=== PATIENT | female | born 1970 | race Caucasian/White ===

== ENCOUNTER → 2017-04-18 | Outpatient (CLI) | payer OTHER ==
[~2017-04-18] MED LIST: ALPR.5T PO; ALPRAZOLAM 0.5 MG; BUDE6HFA IH; HYDR-3456 PO; HYDR1TAB8 OP; NITR-65 PO; NITR100C3 PO; ONDA-42 SL; OXYC-12 PO; OXYC-272 PO; SUMA1TAB PO
--- NOTE | 2017-04-21 14:31 | Diagnostic Imaging Report ---
EXAMINATION: Bilateral screening mammogram 2D views with tomosynthesis. The current study was also evaluated with a Computer Aided Detection (CAD) system. INDICATION: Screening. PERSONAL HISTORY: No current complaints stated on the questionnaire. COMPARISON: 11/09/2013. FINDINGS: The breasts are composed of heterogeneously dense parenchyma which may decrease mammographic sensitivity. Punctate benign-appearing calcifications are seen. Retropectoral symmetric implants are again noted without change. Allowing for technique and positional differences, no suspicious change is seen. IMPRESSION: No significant change. ACR BI-RADS Category 2: Benign findings. Result letter will be mailed to the patient. Note: At least 10% of breast cancer is not imaged by mammography. Dictated by: Dictated on workstation # [id number]
== END ==
LOC: RAD 12:23
PROVIDERS: ATTEND Nurse Practitioner
DX: Z12.31 Encounter for screening mammogram for malignant neoplasm of breast (principal); N93.8 Other specified abnormal uterine and vaginal bleeding
CPT/HCPCS: 77067

== ENCOUNTER → 2019-05-05 | Outpatient (CLI) | payer OTHER ==
--- NOTE | 2019-05-05 16:49 | Diagnostic Imaging Report ---
INDICATION: Right lower quadrant pain. History of ureteral stones. COMPARISON: 08/20/2013. FINDINGS: No mineralizations overlying the renal fossa to suggest renal calculi. There are few scattered calcified pelvic phleboliths that are unchanged. Nonobstructive bowel gas pattern. Small physiologic volume of colonic stool is present. Normal regional skeleton. IMPRESSION: 1. No radiographic evidence of urinary tract calculi. Dictated by: Dictated on workstation # [id number]
== END ==
LOC: RAD 11:40
PROVIDERS: ATTEND Family Medicine
DX: R10.31 Right lower quadrant pain (principal); Z87.442 Personal history of urinary calculi
CPT/HCPCS: 74018

== ENCOUNTER 2021-06-12 14:36 | Emergency (ER) | payer OTHER ==
[~2021-06-12] VITALS: Ht 180 cm; Wt 86.0 kg
[2021-06-12] MEDS ORDERED: LIDOCAINE/EPI 1%-1:100,000 (XYLOCAINE) 10 ML INJ ONE (15:45)
--- NOTE | 2021-06-12 15:47 | ED GI ---
General Chief Complaint: Rect Problems Stated Complaint: HEMORRHOIDS Nursing Triage Note: PT AMB TO ER WITH C/O PAINFUL HEMORRHOIDS FOR ABOUT 2 WEEKS. PT SAID ABOUT 6 YRS AGO SHE HAD ONE LACERATED HERE Source of Information: Patient Exam Limitations: No Limitations History of Present Illness Date Seen by Provider: Jun 12, 2021 Time Seen by Provider: 15:42 Initial Comments To ER by private vehicle with reports of painful hemorrhoid for about 2 weeks. She has had hemorrhoids previously and been seen here in the emergency room with incision and drainage twice and has had good results with more rapid healing. Is not on any anticoagulants. She would like to have this done if possible. Timing/Duration: 1-2 Days Severity/Quality: Moderate Radiation: No Radiation Activities at Onset: None Allergies and Home Medications Allergies Coded Allergies: No Known Drug Allergies (Unverified , 05/04/12) Patient Home Medication List Home Medication List Reviewed: Yes Alprazolam (Xanax) 0.5 Mg Tablet, 1 MG PO HS, (Reported) Entered as Reported by: ESTEFANI REEVES on 05/04/12 1259 Hydrocodone Bit/Ibuprofen (Vicoprofen 200-7.5 Mg Tab) 1 Each Tablet, 1-2 EACH OP Q4-6HR PRN for PAIN Prescribed by: GENE ROWE on 08/06/13 1024 Hydrocodone/Acetaminophen (Vicodin Es 7.5-300 mg Tablet) 1 Each Tablet, 1-2 TAB PO Q4-6HR PRN for PAIN Prescribed by: MICHELLE CHAPMAN MD on 11/09/13 1529 Nitrofurantoin Macrocrystal (Macrobid 100 Mg) 100 Mg Capsule, 1 CAP PO BID Prescribed by: KOLE COOK on 08/18/13 1058 Nitrofurantoin/Nitrofuran Mac (Macrobid) 100 Mg Capsule, 1 EACH PO BID Prescribed by: GENE ROWE on 08/06/13 1024 Ondansetron Hcl (Zofran Oral Dissolve) 4 Mg Tab, 4 MG SL Q4H Prescribed by: GENE ROWE on 08/06/13 1024 Oxycodone Hcl/Acetaminophen (Percocet 10-325 Mg Tablet) 1 Tab Tablet, 1 TAB PO Q4H PRN for PAIN Prescribed by: KOLE COOK on 08/18/13 1058 Sumatriptan Succ/Naproxen Sod (Treximet 85-500 Mg Tablet) 1 Each Tablet, 1 EACH PO NEEDED, (Reported) Entered as Reported by: ESTEFANI REEVES on 05/04/12 1259 [Xanax .5mg Hs Prn] , Unknown Dose, (Reported) Entered as Reported by: KOLE COOK on 08/18/13 1058 Review of Systems Review of Systems Constitutional: see HPI EENTM: No Symptoms Reported Respiratory: No Symptoms Reported Cardiovascular: No Symptoms Reported Gastrointestinal: See HPI, Other (Rectal pain) Genitourinary: No Symptoms Reported Musculoskeletal: no symptoms reported Skin: no symptoms reported Psychiatric/Neurological: No Symptoms Reported Endocrine: No Symptoms Reported Hematologic/Lymphatic: No Symptoms Reported Past Hourifv-Wzksev-Orvolq Hx Patient Social History Tobacco Use?: No Substance use?: No Alcohol Use?: Yes Alcohol type: Beer Alcohol Frequency: Rarely Pt feels they are or have been: No Immunizations Up To Date Influenza Vaccine Up-to-Date: No; Not Current First/Initial COVID19 Vaccinat: September COVID19 Vaccination Jomar: OCTOBER COVID19 Vaccine Senior C 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 oz. 83.535127ss; 26.00 BMI Method:Stated General Appearance: WD/WN, no apparent distress, other (Alert and oriented very pleasant no distress) Respiratory: no respiratory distress, no accessory muscle use Gastrointestinal: normal bowel sounds, non tender, soft Genital/Rectal: other (Rectal exam done with Maryjo BAILEY at the bedside. There is an acutely thrombosed right sided external hemorrhoid about dime sized. This was anesthetized topically with let then additionally with 2 mL of 1% lidocaine with epinephrine using a 27-gauge needle. Then made a 1 cm incision with an 11 blade scalpel. A large amount of clot was then extracted with tweezers.) Extremities: normal range of motion, non-tender Neurologic/Psychiatric: alert, normal mood/affect Skin: normal color, warm/dry Progress/Results/Core Measures Results/Orders My Orders Orders - MYRA MOROCHO APRN Lidocaine/Epi 1% 1:100,000 (Xylocaine 1% (06/12/21 15:45) Let Solution (Let Solution) (06/12/21 16:00) Lidocaine/Epi 1% 1:100,000 (Xylocaine /E (06/12/21 16:15) Lidocaine/Epi 1% 1:100,000 (Xylocaine /E (06/12/21 16:15) Medications Given in ED Current Medications Medications Dose Ordered Sig/Staci Route Start Time Stop Time Status Last Admin Dose Admin Lidocaine/ Epinephrine 10 ml ONCE ONCE INJ 06/12/21 16:15 06/12/21 16:16 DC 06/12/21 16:19 10 ML Tetracaine/ Epinephrine/ Lidocaine 3 ml ONCE ONCE TOP 06/12/21 16:00 06/12/21 16:01 DC 06/12/21 16:01 3 ML Vital Signs/I&O 06/12/21 15:13 Temp 36.9 Pulse 75 Resp 18 B/P (MAP) 146/91 (109) Pulse Ox 98 O2 Delivery Room Air Blood Pressure Mean: 109 Departure Communication (Admissions) I discussed with her that incision and drainage is most helpful within 72 hours of symptom onset and we're quite a bit beyond that. Given her intolerable symptoms and history with rapid improvement we will go ahead and do an incision and drainage of this acutely thrombosed external hemorrhoid. I also discussed with her the risk of bleeding, infection. She has had these before and has had success without difficulty. Would like to proceed with incision and drainage. Impression Primary Impression: Thrombosed external hemorrhoid Disposition: HOME, SELF-CARE Condition: Stable Departure-Patient Inst. Decision time for Depature: 16:37 Referrals: BEHT OLIVA MD (PCP/Family) Primary Care Physician Patient Instructions: Hemorrhoids Add. Discharge Instructions: 1. Return to ER for any concerns. Warm bathtub soaks after a bowel movement for the next few days instead of wiping. You may also shower instead. Might be a good idea to apply some topical lidocaine on a gauze pad before having a bowel movement. Also, keep your stool soft by increasing water intake, stool softener like Colace twice a day. All discharge instructions reviewed with patient and/or family. Voiced understanding. Scripts Hydrocodone/Acetaminophen (Hydrocodone-Acetamin 5-325 mg) 1 Each Tablet 1 TAB PO Q4H PRN for PAIN-MODERATE (5-7), #14 TAB Prov: MYRA MOROCHO APRN 06/12/21 Lidocaine HCl (Lidocaine) 35 Gm Oint 35 GM TP TID PRN for PAIN-MILD (1-4), #1 EA Prov: MYRA MOROCHO APRN 06/12/21 Sulfamethoxazole/Trimethoprim (Bactrim Ds Tablet) 1 Each Tablet 1 EACH PO BID, #10 TAB Prov: MYRA MOROCHO APRN 06/12/21 MYRA MOROCHO APRN Jun 12, 2021 15:47
[2021-06-12] MEDS ORDERED: L.E.T. SOLUTION 3 ML SYR TOP ONE (16:00)
[2021-06-12] MEDS ORDERED: LIDOCAINE/EPI 1%-1:100,000 (XYLOCAINE) 20ML INJ ONE ×2 (16:15)
[2021-06-12] MEDS ORDERED: LD5O35 TP (16:40)
[2021-06-12] MEDS ORDERED: ACHD5005 PO (16:40)
[2021-06-12] MEDS ORDERED: SULF1TAB38 PO (16:40)
[2021-06-12 16:55] VITALS: BP 131/91
== END 2021-06-12 16:55 | disposition home or self-care (01) ==
LOC: EDUNIT# 14:36 → ER 14:38
DX: K64.5 Perianal venous thrombosis (principal); J45.909 Unspecified asthma, uncomplicated; F41.9 Anxiety disorder, unspecified; Z79.899 Other long term (current) drug therapy
CPT/HCPCS: 99281

== ENCOUNTER → 2021-10-24 | Outpatient (CLI) | payer OTHER ==
[~2021-10-24] MED LIST changes: +ACHD5005 PO; +BARIUM for suspension 96% w/w (Vanilla Silq Medium Density) PO ONE; +LD5O35 TP; +SULF1TAB38 PO
--- NOTE | 2021-10-24 11:23 | Diagnostic Imaging Report ---
INDICATION: Food getting stuck in the epigastric region. TECHNIQUE: The patient ingested effervescent crystals as well as thin and thick barium and imaging over the esophagus, stomach, and proximal small bowel was performed. A total of 0.8 minutes of fluoroscopic time was utilized. FINDINGS: The preliminary radiograph of the abdomen is unremarkable apart from a tiny calcific density overlying the lower pole of the left kidney, perhaps a small renal calculus. The esophagus has a smooth contour. No mass or stricture is seen. There is a small esophageal ring distally which produces slight luminal narrowing. No gastroesophageal reflux was demonstrated. There is a very small hiatal hernia present. The stomach has a normal configuration. The duodenal bulb is without deformity. The visualized proximal small bowel loops are of normal caliber. IMPRESSION: Small sliding-type hiatal hernia and distal esophageal ring without significant luminal narrowing. The study is otherwise unremarkable. Dictated by: Dictated on workstation # [id number]
== END ==
LOC: RAD 08:52
PROVIDERS: ATTEND Family Medicine
DX: K44.9 Diaphragmatic hernia without obstruction or gangrene (principal)
CPT/HCPCS: 74246

== ENCOUNTER 2021-12-26 12:26 | Emergency (ER) | payer OTHER ==
[~2021-12-26] VITALS: Ht 180.3 cm; Wt 86.0 kg
[~2021-12-26 12:26] MED LIST changes: -BARIUM for suspension 96% w/w (Vanilla Silq Medium Density) PO ONE
[2021-12-26] MEDS ORDERED: NS IV 1000 ML 1,000 ML IV STA (12:41)
[2021-12-26] MEDS ORDERED: HYDROmorphone 2 MG/ML VIAL (DILAUDID) IV ONE (12:45)
[2021-12-26] MEDS ORDERED: ONDANSETRON 4 MG/2 ML (SDV) Z0FRAN IVP ONE (12:45)
--- NOTE | 2021-12-26 12:47 | ED Abdominal Pain ---
General Chief Complaint: Abdominal/GI Problems Stated Complaint: BACK PAIN Source of Information: Patient Exam Limitations: No Limitations (KAMILLA GARCIA) History of Present Illness Date Seen by Provider: Dec 26, 2021 Time Seen by Provider: 12:44 Initial Comments This is a 51-year-old female who presents to the emergency room for evaluation of sudden onset of left flank pain. She states that approximately 1 hour ago she started having some significant left flank pain that radiates into her left groin. She does have a history of kidney stones 7 to 8 years ago and states that this feels similar. She did not attempt any therapy prior to arrival and nothing seems to make her symptoms better or worse. She currently rates her pain as a sharp 10 out of 10. She denies hematuria, loss of bowel or bladder control, weakness, fever, chills. Timing/Duration: 1 Hour Severity/Quality: Severe Location: Flank Radiation: Groin Activities at Onset: None (KAMILLA GARCIA) Allergies and Home Medications Allergies Coded Allergies: No Known Drug Allergies (Unverified , 05/04/12) Patient Home Medication List Home Medication List Reviewed: Yes (KAMILLA GARCIA) Alprazolam (Xanax) 0.5 Mg Tablet, 1 MG PO HS, (Reported) Entered as Reported by: ESTEFANI REEVES on 05/04/12 1259 Hydrocodone Bit/Ibuprofen (Vicoprofen 200-7.5 Mg Tab) 1 Each Tablet, 1-2 EACH OP Q4-6HR PRN for PAIN Prescribed by: GENE ROWE on 08/06/13 1024 Hydrocodone/Acetaminophen (Vicodin Es 7.5-300 mg Tablet) 1 Each Tablet, 1-2 TAB PO Q4-6HR PRN for PAIN Prescribed by: MICHELLE CHAPMAN MD on 11/09/13 1529 Hydrocodone/Acetaminophen (Hydrocodone-Acetamin 5-325 mg) 1 Each Tablet, 1 TAB PO Q4H PRN for PAIN-MODERATE (5-7) Prescribed by: MYRA MOROCHO on 06/12/21 1640 Hydrocodone/Acetaminophen (Hydrocodone-Acetamin 5-325 mg) 5 Mg-325 Mg Tablet, 1 TAB PO Q4H PRN for PAIN-MODERATE (5-7) Prescribed by: MALIKA HAND on 12/26/21 1412 Lidocaine HCl (Lidocaine) 35 Gm Oint, 35 GM TP TID PRN for PAIN-MILD (1-4) Prescribed by: MYRA MOROCHO on 06/12/21 1640 Nitrofurantoin Macrocrystal (Macrobid 100 Mg) 100 Mg Capsule, 1 CAP PO BID Prescribed by: KOLE COOK on 08/18/13 1058 Nitrofurantoin/Nitrofuran Mac (Macrobid) 100 Mg Capsule, 1 EACH PO BID Prescribed by: GENE ROWE on 08/06/13 1024 Ondansetron (Ondansetron Odt) 4 Mg Tab.rapdis, 4 MG PO Q4H PRN for NAUSEA-1ST LINE Prescribed by: MALIKA HAND on 12/26/21 1411 Ondansetron Hcl (Zofran Oral Dissolve) 4 Mg Tab, 4 MG SL Q4H Prescribed by: GENE ROWE on 08/06/13 1024 Oxycodone Hcl/Acetaminophen (Percocet 10-325 Mg Tablet) 1 Tab Tablet, 1 TAB PO Q4H PRN for PAIN Prescribed by: KOLE COOK on 08/18/13 1058 Sulfamethoxazole/Trimethoprim (Bactrim Ds Tablet) 1 Each Tablet, 1 EACH PO BID Prescribed by: MYRA MOROCHO on 06/12/21 1640 Sumatriptan Succ/Naproxen Sod (Treximet 85-500 Mg Tablet) 1 Each Tablet, 1 EACH PO NEEDED, (Reported) Entered as Reported by: ESTEFANI REEVES on 05/04/12 1259 Tamsulosin HCl (Flomax) 0.4 Mg Cap, 0.4 MG PO DAILY Prescribed by: MALIKA HAND on 12/26/21 1411 [Xanax .5mg Hs Prn] , Unknown Dose, (Reported) Entered as Reported by: KOLE COOK on 08/18/13 1058 Discontinued Medications Hydrocodone/Acetaminophen (Hydrocodone-Acetamin 5-325 mg) 5 Mg-325 Mg Tablet, 1 TAB PO Q4H PRN for PAIN-MODERATE (5-7) Prescribed by: MALIKA HAND on 12/26/21 1406 Ondansetron (Ondansetron Odt) 4 Mg Tab.rapdis, 4 MG PO Q4H PRN for NAUSEA-1ST LINE Prescribed by: MALIKA HAND on 12/26/21 140 Tamsulosin HCl (Flomax) 0.4 Mg Cap, 0.4 MG PO DAILY Prescribed by: MALIKA HAND on 12/26/21 140 Review of Systems Review of Systems Constitutional: no symptoms reported EENTM: No Symptoms Reported Respiratory: No Symptoms Reported Cardiovascular: No Symptoms Reported Gastrointestinal: Nausea Genitourinary: Flank Pain Musculoskeletal: no symptoms reported Skin: no symptoms reported Hematologic/Lymphatic: No Symptoms Reported (KAMILLA GARCIA) Past Kfsylfy-Rxgyci-Lhvaau Hx Patient Social History Tobacco Use?: No (KAMILLA GARCIA) Immunizations Up To Date First/Initial COVID19 Vaccinat: September COVID19 Vaccination Jomar: OCTOBER (KAMILLA GARCIA) Past Medical History Asthma Reproductive Disorders: No Female Reproductive Disorders: Denies Sleep Difficulties, Anxiety (KAMILLA GARCIA) Physical Exam Vital Signs Vital Signs - First Documented 12/26/21 12:40 Temp 35.6 Pulse 75 Resp 18 B/P (MAP) 152/98 (116) Pulse Ox 100 O2 Delivery Room Air (DAVID NELSON MD) Vital Signs Capillary Refill : (KAMILLA GARCIA) Height/Weight/BMI Height: 5'11" Weight: 185lbs. oz. 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, oriented x 3 Skin: normal color (KAMILLA GARCIA) Progress/Results/Core Measures Results/Orders Lab Results Laboratory Tests Test 12/26/21 12:40 12/26/21 12:46 Range/Units White Blood Count 5.3 4.3-11.0 10^3/uL Red Blood Count 4.26 3.80-5.11 10^6/uL Hemoglobin 10.2 L 11.5-16.0 g/dL Hematocrit 34 L 35-52 % Mean Corpuscular Volume 79 L 80-99 fL Mean Corpuscular Hemoglobin 24 L 25-34 pg Mean Corpuscular Hemoglobin Concent 30 L 32-36 g/dL Red Cell Distribution Width 15.9 H 10.0-14.5 % Platelet Count 258 130-400 10^3/uL Mean Platelet Volume 10.5 9.0-12.2 fL Immature Granulocyte % (Auto) 0 % Neutrophils (%) (Auto) 56 42-75 % Lymphocytes (%) (Auto) 27 12-44 % Monocytes (%) (Auto) 10 0-12 % Eosinophils (%) (Auto) 6 0-10 % Basophils (%) (Auto) 0 0-10 % Neutrophils # (Auto) 3.0 1.8-7.8 10^3/uL Lymphocytes # (Auto) 1.4 1.0-4.0 10^3/uL Monocytes # (Auto) 0.5 0.0-1.0 10^3/uL Eosinophils # (Auto) 0.3 0.0-0.3 10^3/uL Basophils # (Auto) 0.0 0.0-0.1 10^3/uL Immature Granulocyte # (Auto) 0.0 0.0-0.1 10^3/uL Sodium Level 138 135-145 MMOL/L Potassium Level 3.6 3.6-5.0 MMOL/L Chloride Level 105 98-107 MMOL/L Carbon Dioxide Level 21 21-32 MMOL/L Anion Gap 12 5-14 MMOL/L Blood Urea Nitrogen 16 7-18 MG/DL Creatinine 0.82 0.60-1.30 MG/DL Estimat Glomerular Filtration Rate 87 BUN/Creatinine Ratio 20 Glucose Level 103 70-105 MG/DL Calcium Level 8.8 8.5-10.1 MG/DL Urine Color YELLOW Urine Clarity CLEAR Urine pH 6.0 5-9 Urine Specific Kathleen 1.020 1.016-1.022 Urine Protein TRACE H NEGATIVE Urine Glucose (UA) NEGATIVE NEGATIVE Urine Ketones NEGATIVE NEGATIVE Urine Nitrite NEGATIVE NEGATIVE Urine Bilirubin NEGATIVE NEGATIVE Urine Urobilinogen 0.2 < = 1.0 MG/DL Urine Leukocyte Esterase NEGATIVE NEGATIVE Urine RBC (Auto) 2+ H NEGATIVE Urine RBC 10-25 H /HPF Urine WBC NONE /HPF Urine Squamous Epithelial Cells 5-10 /HPF Urine Crystals PRESENT H /LPF Urine Amorphous Sediment FEW NIVIA URATES H /LPF Urine Bacteria NEGATIVE /HPF Urine Casts NONE /LPF Urine Mucus MODERATE H /LPF Urine Culture Indicated NO (DAVID NELSON MD) Vital Signs/I&O 12/26/21 12/26/21 12:40 14:14 Temp 35.6 Pulse 75 70 Resp 18 16 B/P (MAP) 152/98 (116) 106/74 Pulse Ox 100 100 O2 Delivery Room Air (DAVID NELSON MD) Departure Communication (PCP) CT abdomen and pelvis shows obstructing calculus in the left UVJ measuring 0.4 cm with mild left-sided hydroureteronephrosis. Additional nonobstructing calculus in the superior pole of the right kidney measuring 0.2 cm. Patient was given IV pain medication and a liter of fluid. Lab work was otherwise unremarkable. Patient is pain-free. Discussed outpatient follow-up with urology. Will discharge with Flomax, pain medication and Zofran for nausea. If any worsening symptoms return back to ED for further evaluation. (KAMILLA GARCIA) Impression Primary Impression: Ureterolithiasis Additional Impression: Nephrolithiasis Disposition: 01 HOME, SELF-CARE Condition: Stable Departure-Patient Inst. Decision time for Depature: 14:01 (KAMILLA GARCIA) Referrals: BETH OLIVA MD (PCP/Family) Primary Care Physician DIMA COMBS MD Patient Instructions: Kidney Stone, Adult ED Add. Discharge Instructions: Recommend outpatient follow-up with urology. Recommend pain medication as needed. Oral hydration. If any worsening symptoms return back to ED for further evaluation All discharge instructions reviewed with patient and/or family. Voiced understanding. Scripts Hydrocodone/Acetaminophen (Hydrocodone-Acetamin 5-325 mg) 5 Mg-325 Mg Tablet 1 TAB PO Q4H PRN for PAIN-MODERATE (5-7), #8 TAB Prov: KAMILLA GARCIA 12/26/21 Ondansetron (Ondansetron Odt) 4 Mg Tab.rapdis 4 MG PO Q4H PRN for NAUSEA-1ST LINE, #8 TAB Prov: KAMILLA GARCIA 12/26/21 Tamsulosin HCl (Flomax) 0.4 Mg Cap 0.4 MG PO DAILY, #20 CAP Prov: KAMILLA GARCIA 12/26/21 ATTENDING PHYSICIAN NOTE: I was physically present as attending physician in the emergency department during the care of this patient, but I was not directly involved in the decision making or delivery of care for this patient. (DAVID NELSON MD) KAMILLA GARCIA Dec 26, 2021 12:47 DAVID NELSON MD Dec 27, 2021 21:25
[2021-12-26 12:56] LABS: BASOPHILS % (AUTO) 0 % (0-10); EOSINOPHILS # (AUTO) 0.3 10^3/uL (0.0-0.3); EOSINOPHILS % (AUTO) 6 % (0-10); HEMATOCRIT 34 % (35-52); HEMOGLOBIN 10.2 g/dL (11.5-16.0); LYMPHOCYTES # (AUTO) 1.4 10^3/uL (1.0-4.0); LYMPHOCYTES % (AUTO) 27 % (12-44); MEAN CORPUSCULAR HEMOGLOBIN 24 pg (25-34); MEAN CORPUSCULAR HGB CONC 30 g/dL (32-36); MEAN CORPUSCULAR VOLUME 79 fL (80-99); MEAN PLATELET VOLUME 10.5 fL (9.0-12.2); MONOCYTES # (AUTO) 0.5 10^3/uL (0.0-1.0); MONOCYTES % (AUTO) 10 % (0-12); NEUTROPHILS % (AUTO) 56 % (42-75); PLATELET COUNT 258 10^3/uL (130-400); WHITE BLOOD COUNT 5.3 10^3/uL (4.3-11.0)
[2021-12-26 13:02] LABS: BILIRUBIN,URINE NEGATIVE (NEGATIVE); CLARITY,URINE CLEAR; COLOR,URINE YELLOW; GLUCOSE, URINE (UA) NEGATIVE (NEGATIVE); KETONES,URINE NEGATIVE (NEGATIVE); LEUKOCYTE ESTERASE ,URINE NEGATIVE (NEGATIVE); NITRITE,URINE NEGATIVE (NEGATIVE); PROTEIN,URINE TRACE (NEGATIVE)
[2021-12-26 13:14] LABS: POTASSIUM 3.6 MMOL/L (3.6-5.0)
[2021-12-26 13:15] LABS: AMORPHOUS SEDIMENT,UR FEW AMOR URATES /LPF; BACTERIA,URINE NEGATIVE /HPF
[2021-12-26 13:15] LABS: CALCIUM 8.8 MG/DL (8.5-10.1)
[2021-12-26 13:19] LABS: CREATININE SERUM 0.82 MG/DL (0.60-1.30)
--- NOTE | 2021-12-26 13:43 | Diagnostic Imaging Report ---
PROCEDURE: CT abdomen and pelvis without contrast. TECHNIQUE: Multiple contiguous axial images were obtained through the abdomen and pelvis without the use of intravenous contrast. Auto Exposure Controls were utilized during the CT exam to meet ALARA standards for radiation dose reduction. INDICATION: Left-sided flank pain. COMPARISON: 08/06/2013. FINDINGS: The heart is unremarkable. Nodule is seen in the right middle lobe measuring 0.4 cm, stable since 2013. A calculus is seen in the left UVJ measuring 0.4 cm with mild left-sided hydroureteronephrosis. A nonobstructing calculus is seen in the superior pole of the right kidney measuring 0.2 cm. No evidence of solid renal mass. The liver, spleen, pancreas, and adrenal glands have a normal appearance. There is no pathologically enlarged mesenteric or retroperitoneal adenopathy. The bowel loops are nondilated. The appendix is visualized in the right lower quadrant and has a normal appearance. There is no free fluid or free air. No acute osseous abnormalities. There is no free air, loculated collection, or adenopathy in the pelvis. IMPRESSION: 1. Obstructing calculus in the left UVJ measuring 0.4 cm with mild left-sided hydroureteronephrosis. 2. Additional nonobstructing calculus in the superior pole of the right kidney measuring 0.2 cm. Dictated by: Dictated on workstation # [id number]
[2021-12-26] MEDS ORDERED: ONDA4TAB11 PO ×2 (14:02→14:11)
[2021-12-26] MEDS ORDERED: ACHD5005 PO ×3 (14:02→14:11)
[2021-12-26] MEDS ORDERED: TMSL.4C PO ×2 (14:02→14:11)
[2021-12-26 14:14] VITALS: BP 106/74
== END 2021-12-26 14:23 | disposition home or self-care (01) ==
LOC: EDUNIT# 12:26 → ER 12:27
DX: N13.2 Hydronephrosis with renal and ureteral calculous obstruction (principal); Z87.442 Personal history of urinary calculi
CPT/HCPCS: 36415; 74176; 80048; 81000; 85025

== ENCOUNTER → 2022-01-16 | Outpatient (CLI) | payer OTHER ==
[~2022-01-16] MED LIST changes: +ALPR0.5T PO; +CARB200T6 PO; +NAPR-1071 PO; +ONDA4TAB11 PO; +SUMA1TAB12 PO; +TMSL.4C PO
--- NOTE | 2022-01-16 16:34 | Diagnostic Imaging Report ---
INDICATION: Left UVJ stone. Time of Exam: 3:40 PM Correlation is made with CT exam from 12/26/2021. The previously noted left UVJ calculus is not appreciated by plain film. There are several pelvic calcifications present which are likely phleboliths. No definite calculi along the course of the ureters are identified. Bowel gas pattern is unremarkable. IMPRESSION: Previously noted left UVJ calculus is no longer appreciated. Dictated by: Dictated on workstation # [id number]
== END ==
LOC: RAD 15:24
PROVIDERS: ATTEND Urology
DX: N20.2 Calculus of kidney with calculus of ureter (principal)
CPT/HCPCS: 74018

== ENCOUNTER 2022-01-18 05:33 | Outpatient (CLI) | payer OTHER ==
[~2022-01-18] VITALS: Ht 180.3 cm; Wt 86.0 kg
[~2022-01-18 05:33] MED LIST changes: -ALPR0.5T PO; -CARB200T6 PO; -NAPR-1071 PO; -SUMA1TAB12 PO
[2022-01-18] MEDS ORDERED: ALPR0.5T PO (10:35)
[2022-01-18] MEDS ORDERED: CARB200T6 PO (10:35)
[2022-01-18] MEDS ORDERED: SUMA1TAB12 PO (10:35)
[2022-01-18] MEDS ORDERED: NAPR-1071 PO (10:35)
== END 2022-01-18 10:51 | disposition home or self-care (01) ==
LOC: PREOP 05:33
PROVIDERS: ATTEND Urology
DX: Z01.818 Encounter for other preprocedural examination (principal)

== ENCOUNTER 2022-01-22 06:41 | Day surgery (SDC) | payer OTHER ==
[~2022-01-22] VITALS: Ht 180 cm; Wt 86.0 kg
[2022-01-22] VITALS (8 sets, daily range): BP systolic 92–130; BP diastolic 53–86
[~2022-01-22 06:41] MED LIST changes: +ALPR0.5T PO; +CARB200T6 PO; +NAPR-1071 PO; +SUMA1TAB12 PO
[2022-01-22] MEDS ORDERED: MIDAZOLAM 2 MG/2 ML (VERSED) VIAL ONE (06:57)
[2022-01-22] MEDS ORDERED: proPOfol 200 MG/20 ML (DIPRIVAN) VIAL IV ONE (06:57)
[2022-01-22] MEDS ORDERED: LIDOCAINE PF 2% 5 ML (XYLOCAINE) VIAL ONE (06:57)
[2022-01-22] MEDS ORDERED: ONDANSETRON 4 MG/2 ML (SDV) Z0FRAN ONE (06:57)
[2022-01-22] MEDS ORDERED: fentaNYL INJ 100 MCG/2 ML AMP ONE (06:57)
--- NOTE | 2022-01-22 07:04 | Progress Note-Pre Operative ---
Pre-Operative Progress Note H&P Reviewed The H&P was reviewed, patient examined and no changes noted. Date Seen by Provider: Jan 22, 2022 Time Seen by Provider: 07:04 Date H&P Reviewed: Jan 22, 2022 Time H&P Reviewed: 07:04 Pre-Operative Diagnosis: LT DISTAL URETERAL STONE DIMA COMBS MD Jan 22, 2022 07:04
[2022-01-22] MEDS ORDERED: cefTRIAXone 1 GM PRE-MIX 50 ML IV ONE ×2 (07:05→07:15)
[2022-01-22] MEDS: LACTATED RINGERS 1,000 ML IV PRN ×2 (07:10→07:11)
--- NOTE | 2022-01-22 07:18 | Progress Note-Post Operative ---
Post-Operative Progess Note Surgeon (s)/Tellers Supervisor (s) Surgeon DIMA COMBS MD Tellers Supervisor: NONE Pre-Operative Diagnosis LT DISTAL URETERAL STONE Post-Operative Diagnosis SAME (PASSED) Procedure & Operative Findings Date of Procedure 01/22/22 Procedure Performed/Findings LT URETEROSCOPY Anesthesia Type GENERAL Estimated Blood Loss Estimated blood loss (mL): NONE Specimens/Packing Specimens Removed NONE Packing: NONE DIMA COMBS MD Jan 22, 2022 07:18
--- NOTE | 2022-01-22 07:21 | Discharge Inst-Urology ---
Discharge Inst-Urology Reconcile Patient Problems Problems Reviewed?: Yes Final Diagnosis LT DISTAL URETERAL STONE Patient Instructions/Follow Up Plan/Assessment/Instructions Please make appointment to been seen in office in 2 weeks. Increase oral fluids for 48 hours and then as needed. Diet and Activity as tolerated. If questions or concerns contact your physician Or seek help at emergency department. DIMA COMBS MD Jan 22, 2022 07:21
[2022-01-22] MEDS ORDERED: PHENYLEPHRINE 100 MCG/ML 10 ML (ANESTHESIA) SYR ONE (07:40)
[2022-01-22] MEDS ORDERED: ROCURONIUM 50 MG/5 ML (ZEMURON) VIAL IV ONE (07:46)
[2022-01-22] MEDS ORDERED: NEOSTIGMINE (BLOXIVERZ ) 1 MG/1ML 10 ML VIAL ONE (07:46)
[2022-01-22] MEDS ORDERED: GLYCOPYRROLATE 0.2 MG/ML (ROBINUL) 2 ML VIAL ONE (07:46)
--- NOTE | 2022-01-22 08:03 | Diagnostic Imaging Report ---
INDICATION: ESWL. EXAMINATION: Abdomen 01/22/2022 COMPARISON: 01/16/2022 FINDINGS: There are scattered hyperdensities within the pelvis which are similar to previous examination some of which are likely represent phleboliths with a distal ureteral stones not excluded. No gross nephrolithiasis appreciated with limitations due to overlying bowel gas and stool. There is a nonobstructive bowel gas pattern. IMPRESSION: 1. Densities noted within the pelvis possibly phleboliths with a distal ureteral stone not excluded. Dictated by: Dictated on workstation # [id number]
[2022-01-22] MEDS ORDERED: SEVOFLURANE (ULTANE) 15 ML INHAL SOLN ONE (08:07)
[2022-01-22] MEDS ORDERED: ONDANSETRON 4 MG/2 ML (SDV) Z0FRAN IVP PRN (08:15)
[2022-01-22] MEDS ORDERED: morphine INJ 10 MG/ML 1ML (SYR OR VIAL) IVP ONE (08:15)
--- NOTE | 2022-01-22 09:02 | Anesthesia-General Post-Op ---
General Patient Condition Mental Status/LOC: Same as Preop Cardiovascular: Satisfactory Nausea/Vomiting: Absent Respiratory: Satisfactory Pain: Controlled Complications: Absent Post Op Complications Complications None Follow Up Care/Instructions Patient Instructions None needed. Anesthesia/Patient Condition Patient Condition Patient is doing well, no complaints, stable vital signs, no apparent adverse anesthesia problems. No complications reported per nursing. CHRISTINA GUILLAUME DO Jan 22, 2022 09:02
--- NOTE | 2022-01-22 11:12 | OPERATIVE REPORT ---
DATE OF SERVICE: 01/22/2022 PREOPERATIVE DIAGNOSIS: Left distal ureteral stone. POSTOPERATIVE DIAGNOSIS: Left distal ureteral stone, "passed." OPERATION PERFORMED: Left ureteroscopy. SURGEON: Charles Combs MD. ANESTHESIA: General. COMPLICATIONS: None. DESCRIPTION OF PROCEDURE: Under satisfactory general anesthesia, the patient in lithotomy position, genitalia were prepped and draped in the usual sterile fashion. Cystoscope was introduced under vision. The bladder was completely normal. Ureteric orifices were normal with clear equal efflux. Using the foroblique lens, I dilated the left ureteral orifice intramural portion to accommodate the 6.9 Slovak semi-rigid ureteroscope. It went in easily all the way up to the kidney back in an antegrade fashion and there were no stones whatsoever. I removed the ureteroscope, reinserted the cystoscope, and emptied the bladder. The patient tolerated the procedure and anesthesia well and was sent to recovery room in a stable condition. 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
== END 2022-01-22 09:30 | disposition home or self-care (01) ==
LOC: SDC 06:41
PROVIDERS: ATTEND Urology
DX: N20.1 Calculus of ureter (principal)
CPT/HCPCS: 74018; 84703; 87081

== ENCOUNTER 2022-03-06 05:41 | Outpatient (CLI) | payer OTHER ==
[~2022-03-06] VITALS: Ht 180.3 cm; Wt 90.7 kg
== END 2022-03-06 11:50 | disposition home or self-care (01) ==
LOC: PREOP 05:41
PROVIDERS: ATTEND Internal Medicine
DX: Z01.818 Encounter for other preprocedural examination (principal); Z12.11 Encounter for screening for malignant neoplasm of colon

== ENCOUNTER → 2022-03-07 | Outpatient (CLI) | payer OTHER ==
--- NOTE | 2022-03-07 14:44 | Diagnostic Imaging Report ---
Indication: Routine screening. Comparison is made with prior mammogram 04/18/2017, 11/09/2013. 2-D and 3-D bilateral screening mammography was performed with CAD. CAD is utilized. The current study was also evaluated with a Computer Aided Detection (CAD) system. Bilateral subpectoral breast implants are again noted. Implant contours are smooth. Both breasts are heterogeneously dense, limiting the sensitivity of mammography. There are benign calcifications. Overall parenchymal pattern stable. No mass or malignant-appearing microcalcifications are seen. Axillae are unremarkable. IMPRESSION: BI-RADS Category 2 No mammographic features suspicious for malignancy are identified. ACR BI-RADS Category 2: Benign findings. Result letter will be mailed to the patient. Note: At least 10% of breast cancer is not imaged by mammography. Dictated by: Dictated on workstation # [id number]
== END ==
LOC: RAD 10:56
PROVIDERS: ATTEND Obstetrics & Gynecology
DX: Z12.31 Encounter for screening mammogram for malignant neoplasm of breast (principal)
CPT/HCPCS: 77063; 77067

== ENCOUNTER 2022-03-15 09:35 | Day surgery (SDC) | payer OTHER ==
--- NOTE | 2022-03-06 08:33 | HISTORY AND PHYSICAL ---
DATE OF SERVICE: COLONOSCOPY HISTORY AND PHYSICAL HISTORY OF PRESENT ILLNESS: The patient is a 51-year-old white female referred by Dr. Gomes for her first screening colonoscopy. She is deemed to be of average risk. She is not aware of any family history for colon polyps or colon cancer. She denies abdominal pain, change in bowel habit, melena or bright red blood per rectum. PAST SURGICAL HISTORY: Significant for breast augmentation. She has had lithotripsy in January, uneventful for ureteral stone left side and she has had hemorrhoidectomy. PAST MEDICAL HISTORY: Significant for some urinary stress incontinence with a known cystocele and rectocele. She has a history of asthma, reportedly well controlled and history of migraine headache for which she takes intermittent Treximet. 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 No significant past alcohol history and no smoking history. FAMILY HISTORY: Parents are living in their early 80s. No reported health problems. REVIEW OF SYSTEMS: CONSTITUTIONAL: Denies night sweats, chills, fever, change in weight. PULMONARY: On inhaler therapy. She denies cough, wheezing, shortness of breath. CARDIOVASCULAR: Denies chest pain, orthopnea, PND, pedal edema. GASTROINTESTINAL: As noted in the HPI. PHYSICAL EXAMINATION: GENERAL: Reveals a pleasant white female, appears to be in no acute distress. VITAL SIGNS: Blood pressure 120/78, weight 200 pounds. HEENT: Unremarkable. Mallampati 2 pharyngeal configuration. No erythema noted. CHEST: Clear to auscultation. CARDIOVASCULAR: Reveals a regular rate and rhythm without murmur, S3 or S4. ABDOMEN: Soft, supple without mass, organomegaly or tenderness. EXTREMITIES: Reveal no cyanosis, clubbing or edema. ASSESSMENT: The patient is being set up for her first screening colonoscopy, deemed to be of average risk as noted above. Prep instructions were given, questions were answered in her electronic medical record as well as Dr. Gomes's notations were reviewed. I thank you for the referral of this pleasant lady. Job ID: [id number] DocumentID: [id number] Dictated Date: 02/28/2022 11:47:49 [employer] [place] Date: 02/28/2022 12:16:36 Dictated By: MICHELLE FIGUEROA MD
[~2022-03-15] VITALS: Ht 180 cm; Wt 90.7 kg
[2022-03-15] MEDS ORDERED: LACTATED RINGERS 1,000 ML IV STA (09:41)
--- NOTE | 2022-03-15 09:53 | Pre-Op Note & Conscious Sedat ---
Pre-Operative Progress Note Date H&P Reviewed: Mar 15, 2022 Time H&P Reviewed: 09:53 History & Physical: H&P Reviewed, Patient Examed, No changes noted Pre-Op Diagnosis: screening colon Conscious Sedation Pre-Proced ASA Score 2 For ASA 3 and 4: Consider anesthesia and medical clearance. Also, for patients with a history of failed moderate sedation consider anesthesia. Airway Lungs Heart ASA score ASA 1: a normal healthy patient ASA 2: a patient with a mild systemic disease (mid diabetes, controlled hypertension, obesity ASA 3: a patient with a severe systemic disease that limits activity (angina, COPD, prior Myocardial infarction) ASA 4: a patient with an incapacitating disease that is a constant threat to life (CHF, renal failure) ASA 5: a moribund patient not expected to survive 24 hrs. (ruptured aneurysm) ASA 6: a declared brain- patient whose organs are being harvested. For emergent operations, add the letter E after the classification Mallampati Classification Grade 1 Sedation Plan Analgesia, Amnesia, Plan communicated to team members, Discussed options with patient/fam, Discussed risks with patient/fam The patient is an appropriate candidate to undergo the planned procedure, sedation, and anesthesia. The patient immediately re-assessed prior to indication. MICHELLE FIGUEROA MD Mar 15, 2022 09:53
[2022-03-15 09:55] VITALS: BP 118/72
[2022-03-15] MEDS ORDERED: PROPOFOL INJECTION 50 ML IV ONE ×2 (10:26→10:43)
--- NOTE | 2022-03-15 11:01 | Progress Note-Post Operative ---
Post-Procedure Note Physician (s)/Chicken Handler (s) Physician MICHELLE FIGUEROA MD Pre-Procedure Diagnosis Pre-Procedure Diagnosis: screening colon Post-Procedure Diagnosis Post-operative diagnosis: 3mm polyp removed via hot forceps from rectosigmoid junction otherwise normal colon. MICHELLE FIGUEROA MD Mar 15, 2022 11:01
--- NOTE | 2022-03-15 11:02 | Anesthesia-General Post-Op ---
MAC Patient Condition Mental Status/LOC: Same as Preop Cardiovascular: Satisfactory Nausea/Vomiting: Absent Respiratory: Satisfactory Pain: Controlled Complications: Absent Post Op Complications Complications None Follow Up Care/Instructions Patient Instructions None needed. Anesthesiology Discharge Order Discharge Order Patient is doing well, no complaints, stable vital signs, no apparent adverse anesthesia problems. No complications reported per nursing. EZEQUIEL DANIELS CRNA Mar 15, 2022 11:02
[2022-03-15 11:06] VITALS: BP 97/57
[2022-03-15 11:10] VITALS: BP 99/57
[2022-03-15 11:40] VITALS: BP 110/72
[2022-03-15 11:50] VITALS: BP 110/72
--- NOTE | 2022-03-15 18:10 | OPERATIVE REPORT ---
DATE OF SERVICE: COLONOSCOPY SUMMARY INDICATION FOR THE PROCEDURE: Screening colonoscopy. DESCRIPTION OF PROCEDURE: The patient was placed in the left lateral decubitus position. Prior to undergoing colonoscopy, digital rectal evaluation was performed. Anal sphincter tone was normal and the perianal reflexes intact. No abnormalities were noted on digital inspection of the anal canal or distal rectal vault. The colonoscope was inserted into the rectum and under direct visualization advanced to the cecum. The cecum was identified by identification of ileocecal valve and cecal strap. Quality of the prep was fair. There was a little bit of opaque liquid stool noted in the right colon that could obscure vascular malformation and diminutive polyps. FINDINGS: One diminutive hyperplastic-appearing polyp was noted at the rectosigmoid junction. It was photographed and biopsied and ablated and submitted for histopathology. The sigmoid colon, splenic flexure, transverse colon, hepatic colon, ascending colon, and cecum were unremarkable. No evidence for diverticular disease was noted. ASSESSMENT: One diminutive hyperplastic-appearing polyp was removed via hot forceps from the rectosigmoid junction with otherwise normal colonoscopy to the cecum. See above above comments in regard to right colon and stool prep. As long as there continues no family history for colon cancer, we would advocate consideration for repeat screening colonoscopy in 10 years. Job ID: [id number] DocumentID: [id number] Dictated Date: 03/15/2022 11:04:39 Spine Surgeon Date: 03/15/2022 18:09:49 Dictated By: MICHELLE FIGUEROA MD [facility]
[2022-03-28] MEDS ORDERED: OXYC-199 PO (16:12)
[2022-03-28] MEDS ORDERED: ESTR1TAB27 PO (16:12)
[2022-03-28] MEDS ORDERED: DOCU-143 PO (16:12)
== END 2022-03-15 11:50 | disposition home or self-care (01) ==
LOC: ENDO 09:35
PROVIDERS: ATTEND Internal Medicine
DX: Z12.11 Encounter for screening for malignant neoplasm of colon (principal); K63.5 Polyp of colon
CPT/HCPCS: 88305

== ENCOUNTER 2022-03-21 05:28 | Outpatient (CLI) | payer OTHER ==
[~2022-03-21] VITALS: Ht 180.3 cm; Wt 88.5 kg
[2022-03-21] MEDS ORDERED: TERB250T88 PO (15:21)
== END 2022-03-21 15:34 | disposition home or self-care (01) ==
LOC: PREOP 05:28
PROVIDERS: ATTEND Obstetrics & Gynecology
DX: Z01.818 Encounter for other preprocedural examination (principal)

== ENCOUNTER 2022-03-29 06:57 | Day surgery (SDC) | payer OTHER ==
[~2022-03-29] VITALS: Ht 180.3 cm; Wt 88.5 kg
[2022-03-29] VITALS (12 sets, daily range): BP systolic 95–131; BP diastolic 52–88
[~2022-03-29 06:57] MED LIST changes: +DOCU-143 PO; +ESTR1TAB27 PO; +OXYC-199 PO; +TERB250T88 PO
[2022-03-29] MEDS ORDERED: ceFAZolin INJECTION 1,000 MG VIAL IV ONE (07:15)
[2022-03-29] MEDS ORDERED: LIDOCAINE PF 2% 5 ML (XYLOCAINE) VIAL ONE (07:25)
[2022-03-29] MEDS ORDERED: MIDAZOLAM 2 MG/2 ML (VERSED) VIAL ONE (07:25)
[2022-03-29] MEDS ORDERED: ONDANSETRON 4 MG/2 ML (SDV) Z0FRAN ONE (07:25)
[2022-03-29] MEDS ORDERED: proPOfol 200 MG/20 ML (DIPRIVAN) VIAL IV ONE (07:25)
[2022-03-29] MEDS ORDERED: ROCURONIUM 10 MG/ML 5 ML SYRINGE IV ONE (07:25)
[2022-03-29] MEDS ORDERED: SEVOFLURANE (ULTANE) 15 ML INHAL SOLN ONE ×2 (07:25→10:34)
[2022-03-29] MEDS ORDERED: fentaNYL INJ 100 MCG/2 ML AMP ONE (07:25)
[2022-03-29 08:11] LABS: BASOPHILS % (AUTO) 1 % (0-10); EOSINOPHILS # (AUTO) 0.3 10^3/uL (0.0-0.3); EOSINOPHILS % (AUTO) 9 % (0-10); HEMATOCRIT 32 % (35-52); HEMOGLOBIN 10.1 g/dL (11.5-16.0); LYMPHOCYTES # (AUTO) 0.9 10^3/uL (1.0-4.0); LYMPHOCYTES % (AUTO) 27 % (12-44); MEAN CORPUSCULAR HEMOGLOBIN 25 pg (25-34); MEAN CORPUSCULAR HGB CONC 31 g/dL (32-36); MEAN CORPUSCULAR VOLUME 81 fL (80-99); MEAN PLATELET VOLUME 10.8 fL (9.0-12.2); MONOCYTES # (AUTO) 0.3 10^3/uL (0.0-1.0); MONOCYTES % (AUTO) 10 % (0-12); NEUTROPHILS # (AUTO) 1.9 10^3/uL (1.8-7.8); NEUTROPHILS % (AUTO) 54 % (42-75); PLATELET COUNT 179 10^3/uL (130-400); WHITE BLOOD COUNT 3.5 10^3/uL (4.3-11.0)
[2022-03-29] MEDS ORDERED: ESTRADIOL VAGINAL CREAM 42.5 GM (ESTRACE) VG ONE (08:11)
[2022-03-29] MEDS ORDERED: LIDOCAINE/EPI 2% 1:200,00 (XYLOCAINE) 20 ML VIAL ONE (08:11)
[2022-03-29] MEDS ORDERED: DOCU-143 PO (08:41)
[2022-03-29] MEDS ORDERED: OXYC-199 PO (08:41)
--- NOTE | 2022-03-29 08:43 | Discharge Inst-Surgical ---
Discharge Inst-Surgical Depart Medication/Instructions New, Converted or Re-Newed RX: Transmitted to Pharmacy Consults/Follow Up Patient Instructions: As directed Orders & Referrals Follow Up Appt: Return to clinic on Friday, April 01, 2022 for staple removal Call to make follow up appt. for patient in 4 weeks. Activity: Rest for 24 hours, than as tolerated. Wound Care: May remove Band-Aid tomorrow. Replace as desired. Keep incisions clean and dry. Wash daily with soap and water. Diet: As tolerated shower or tub bathe as desired. No driving for 24 hours, no alcoholic beverages for 24 hours, and nothing per vagina (no tampons, douching, or intercourse) for 8 weeks. Patient to return to the clinic as soon as possible for: Temperature greater than 101F, Severe Pain, Foul discharge from incision or vagina, Excessive Bleeding (more than a period). Activity Activity as Tolerated: No Diet Discharge Diet: No Restrictions ATIYA MARTÍNEZ MD Mar 29, 2022 08:43
--- NOTE | 2022-03-29 09:25 | Progress Note-Post Operative ---
Post-Operative Progess Note Surgeon (s)/Manager [employer] (s) Surgeon DIMA COMBS MD Manager [employer]: MD JAGJIT Pre-Operative Diagnosis LUZ Post-Operative Diagnosis SAME Procedure & Operative Findings Date of Procedure 03/29/22 Procedure Performed/Findings PVS AND CYSTOSCOPY Anesthesia Type GENERAL Estimated Blood Loss Estimated blood loss (mL): NEGLIGIBLE Specimens/Packing Specimens Removed NONE PackinGM ESTRACE VAG PACK DIMA COMBS MD Mar 29, 2022 09:25
[2022-03-29] MEDS: LACTATED RINGERS 1,000 ML IV PRN ×2 (09:30→10:53)
[2022-03-29] MEDS ORDERED: KETOROLAC 30 MG/ML VIAL ONE (10:23)
[2022-03-29] MEDS ORDERED: NEOSTIGMINE (BLOXIVERZ ) 1 MG/1ML 10 ML VIAL ONE (10:23)
[2022-03-29] MEDS ORDERED: GLYCOPYRROLATE 0.2 MG/ML (ROBINUL) 2 ML VIAL ONE (10:23)
[2022-03-29] MEDS: KETOROLAC 30 MG/ML VIAL IV SCH ×3 (10:30→23:19)
[2022-03-29] MEDS ORDERED: morphine INJ 10 MG/ML 1ML (SYR OR VIAL) ONE (10:49)
[2022-03-29] MEDS ORDERED: MEPERIDINE (DEMEROL) INJ 50 MG/ML IVP ONE (11:00)
[2022-03-29] MEDS ORDERED: HYDROmorphone 2 MG/ML VIAL (DILAUDID) IV ONE (11:00)
[2022-03-29] MEDS ORDERED: ONDANSETRON 4 MG/2 ML (SDV) Z0FRAN IVP PRN ×2 (11:00→11:15)
[2022-03-29] MEDS ORDERED: PROMETHAZINE INJ 25 MG/ML (PHENERGAN) AMP IVP ONE (11:00)
[2022-03-29] MEDS ORDERED: morphine INJ 10 MG/ML 1ML (SYR OR VIAL) IVP ONE (11:00)
[2022-03-29] MEDS ORDERED: ESTROGENS CONJ INJECTION 5 ML ONE (11:07)
[2022-03-29] MEDS ORDERED: WATER (STERILE) FOR INJECTION 10 ML ONE (11:08)
[2022-03-29] MEDS ORDERED: ESTROGENS CONJ INJECTION 25 MG in WATER (STERILE) FOR INJECTION 5 ML IV ONE (11:15)
[2022-03-29] MEDS ORDERED: BENZOCAINE/MENTHOL (DERMOPLAST) 56 ML CAN TP PRN (11:15)
[2022-03-29] MEDS ORDERED: D5 LR IV SOLUTION 1,000 ML IV SCH (11:15)
[2022-03-29] MEDS ORDERED: MEPERIDINE (DEMEROL) INJ 50 MG/ML IM PRN (11:15)
[2022-03-29] MEDS ORDERED: PROMETHAZINE INJ 25 MG/ML (PHENERGAN) AMP IM PRN (11:15)
[2022-03-29] MEDS ORDERED: diphenhydrAMINE 50 MG/ML INJ (BENADRYL) ONE (11:27)
[2022-03-29] MEDS ORDERED: diphenhydrAMINE 50 MG/ML INJ (BENADRYL) IVP ONE (11:30)
[2022-03-29] MEDS: oxyCODONE/APAP 5/325MG (PERCOCET 5) TABLET PO PRN ×2 (16:42→20:33)
--- NOTE | 2022-03-29 16:51 | OPERATIVE REPORT ---
DATE OF SERVICE: 03/29/2022 PREOPERATIVE DIAGNOSES: Uterovaginal prolapse and stress urinary incontinence. POSTOPERATIVE DIAGNOSES: Uterovaginal prolapse and stress urinary incontinence with uterine fibroids. OPERATIVE PROCEDURES: Total laparoscopic hysterectomy with bilateral salpingectomies as well as anterior and posterior vaginal repairs with enterocele repair and pubovaginal sling and cystoscopy by Dr. Gomez. OPERATIVE DESCRIPTION: With the patient in the supine position under satisfactory general anesthesia, she was repositioned in dorsal lithotomy position in the [facility] and prepped and draped in the usual fashion for abdominal and vaginal surgery using da Alonzo for assistance. Weighted speculum placed in posterior fornix of vagina, cervix exposed and grasped anteriorly with single tooth tenaculum. Uterus sounded to 12 cm with uterine sound. Cervix was then serially dilated with Leo dilators to accommodate a Jessica II manipulator, which was placed using a 6 mm x 8 cm uterine probe and a 30 mm colpotomy ring. It is noted the patient had a first to second degree cystocele and second degree plus rectocele. She had a generous enterocele and the uterus descended over group home almost [address] down the vaginal vault. With the uterine manipulator in place, a Arvizu catheter was placed in the urinary bladder. Tenaculum and speculum were removed and the patient brought in low dorsal lithotomy position. A 12 mm incision was made 10 cm superior to the umbilicus. Veress needle was placed through that incision into the abdominal cavity. Correct placement was confirmed with the water drop test and the abdomen insufflated with 2.4 liters of carbon dioxide. The Veress needle was removed and a 12 mm Optiview laparoscopic port was placed. The abdominal wall was transilluminated and ports of 8 mm were placed through incisions of those sizes 8 cm lateral to the umbilicus approximately 2.5 to 3 cm above the umbilicus. The patient now placed in Trendelenburg allowing the bowel to spill out of the pelvis. The da Alozno column was advanced on the patient and operative instrument was placed in the right and left lateral ports and I retired to the da Alonzo console. At the console using the vessel sealer on the right and bipolar fenestrated grasper on the left, the pelvis was first examined. Both ovaries were normal in appearance. The uterus was large and bulky with a protuberance on the posterolateral left side consistent with a large intramural fibroid. Laparoscope was rotated. The appendix was identified. It was a normal vermiform appendix. Decision was made to go ahead with the proposed procedure that being total laparoscopic hysterectomy with bilateral salpingectomies and conservation of the ovaries. The right fallopian tube and ovary were grasped and then the fallopian tube was elevated. The mesosalpinx was clamped, cauterized and divided across the length of the mesosalpinx to the uteroovarian pedicle, which was then clamped, cauterized and divided with the vessel sealer as well. Dissection was carried across the round ligament and down the broad ligament onto the cardinal ligament. This allowed for removal of the fallopian tube with the uterus eventually. Same procedure was performed on the left, allowing for conservation of both ovaries. The anterior lower uterine segment peritoneum was then divided. The bladder was carefully dissected down off the lower uterine segment and then colpotomy incision was started at 12 o'clock position onto the colpotomy ring. That incision was continued circumferentially until the entire colpotomy ring was exposed and then the uterus with the fallopian tubes still attached was extracted through the vagina. The vaginal cuff was now closed with two sutures of V-Loc barbed suture starting from the right angle and continued to approximately two-thirds the way across the cuff. The second suture was used to finish the vaginal cuff including the left angle. Care was taken to ensure the inclusion of the uterine vessel pedicles bilaterally. The last several stitches with the second suture were used to reapproximate the peritoneum over the vaginal cuff. With the procedure complete, no bleeding and no remaining abnormal pathology, the procedure was terminated. The operative instruments were removed under direct vision as were the ports. The abdomen was evacuated of the insufflating gas in the process of removing the ports. The skin incisions were stapled. The fascia at the supraumbilical incision was closed with [id number] suture of 2-0 Vicryl. The patient was repositioned in the dorsal lithotomy position for the vaginal portion of the surgery. A weighted speculum was placed in the posterior fornix of the vagina. The anterior vaginal wall was grasped with two Daisy clamps. Vaginal wall was opened in the midline with Metzenbaum scissors. That opening was continued from approximately centimeter and a half from the urethral meatus to the apex of the vagina. The vaginal wall was carefully dissected off of the bladder wall back to the pubic rami bilaterally. The endopelvic fascia and bladder wall were then plicated with 2-0 Vicryl sutures, elevating the bladder and lengthening the urethra. At this point, Dr. Gomez assumed care of the patient. I remained to assist. Dr. Gomez performed the pubovaginal sling procedure and a cystoscopy. He confirmed urine efflux from the ureteral orifices on the cystoscopy. Upon completion of Dr. Gomez's portion of the procedure, good support of the urethra was evident. There was no significant bleeding and I resumed care of the patient, resected the redundant anterior vaginal wall muscularis mucosa and closed the vaginal wall with a running locked suture of 3-0 Vicryl Rapide. Good support was evident and hemostasis was complete. Posterior repair was now affected by placing Daisy clamps on the perineum and the hymenal ring at 5 and 7 o'clock position and an inverted triangle skin was removed from the perineal body and upright triangle from the posterior vaginal floor. The rectovaginal space was entered sharply and dissected bluntly to the apex of the vagina, where it was explored. There was an enterocele that was reduced and plicated with two 2-0 Vicryl sutures in a pursestring fashion. With the enterocele obliterated, the rectovaginal space was now obliterated with additional suture of 2-0 Vicryl and the perineal body was restored also with additional sutures of 2-0 Vicryl. Redundant posterior vaginal muscularis mucosa was removed sharply. The vaginal wall was closed with a running locked suture of 3-0 Vicryl Rapide, that closure was continued past the hymenal ring down on the perineal body then back up to the hymenal ring subcuticularly, where the suture was tied. The vagina was examined for hemostasis. There was a pulsatile bleeding on the posterior vaginal incision. This was controlled with a [id number] suture of 2-0 Vicryl with hemostasis now assured. The vagina was closed vaginally with estrogen cream and a pack of Kerlix gauze was placed. Arvizu catheter was left to dependent drainage after Dr. Gomez's portion of the procedure. Digital rectal exam confirmed no stricture or stenosis of the rectum and no sutures into or through the rectal mucosa. With sponge and needle counts correct, hemostasis assured, blood loss around 300 mL for the total procedure, the patient was now uneventfully awakened from her general anesthesia and transferred to the recovery room in stable condition. Job ID: [id number] DocumentID: [id number] Dictated Date: 03/29/2022 11:33:56 Fleshing Machine Operator Date: 03/29/2022 16:51:10 Dictated By: ATIYA MARTÍNEZ MD
[2022-03-30 02:00] VITALS: BP 103/54
[2022-03-30] MEDS: oxyCODONE/APAP 5/325MG (PERCOCET 5) TABLET PO PRN ×2 (06:25→12:00)
[2022-03-30] MEDS: KETOROLAC 30 MG/ML VIAL IV SCH (06:25)
[2022-03-30 06:49] VITALS: BP 130/82
--- NOTE | 2022-03-30 08:42 | Progress Note ---
Standard Progress Note Progress Notes/Assess & Plan Date Seen by a Provider: Mar 30, 2022 Time Seen by a Provider: 08:41 Progress/Assessment & Plan This patient is without complaint. She is ambulating, tolerating oral intake well and has good pain control. Her Arvizu catheter and packing have been removed. She has not voided yet. Vital Signs Date Time Temp Pulse Resp B/P (MAP) Pulse Ox O2 Delivery O2 Flow Rate FiO2 03/30/22 06:49 36.8 73 18 130/82 (98) 99 Room Air 03/30/22 02:00 37.2 75 18 103/54 (70) 96 Room Air 03/29/22 19:57 37.4 70 14 104/58 (73) 99 Room Air 03/29/22 14:10 37.0 78 18 112/73 (86) 98 Room Air 03/29/22 12:15 96 Room Air 03/29/22 12:00 36.1 75 18 128/66 (86) 97 Room Air 03/29/22 11:50 36.7 20 112/76 (88) 98 Room Air 03/29/22 11:50 Room Air 03/29/22 11:45 Room Air 03/29/22 11:40 20 120/72 (88) 98 Room Air 03/29/22 11:30 20 114/70 (85) 98 Room Air 03/29/22 11:30 Room Air 03/29/22 11:20 20 100/63 (75) 98 Room Air 03/29/22 11:15 OxyMask 2.00 03/29/22 11:10 20 116/67 (83) 100 OxyMask 2.00 03/29/22 11:00 OxyMask 6.00 03/29/22 11:00 20 112/52 (72) 100 OxyMask 4.00 03/29/22 10:50 20 106/63 (77) 100 OxyMask 6.00 03/29/22 10:43 OxyMask 6.00 03/29/22 10:43 36.7 20 95/60 (72) 100 OxyMask 6.00 I & O 03/30/22 07:00 Intake Total 4500 ml Output Total 2050 ml Balance 2450 ml Vital signs are stable. Patient is afebrile. The abdomen is benign. The surgical incisions are dry and intact Extremities show no clubbing or cyanosis. There is no Homans' sign. Pelvic exam was deferred Assessment and plan Postoperative day #1 doing well. Plan is for routine convalescent care with discharge home when patient is ambulating, voiding, tolerating oral intake and pain is controlled with oral medication. Final Diagnosis Uterovaginal prolapse and stress urinary incontinence ATIYA MARTÍNEZ MD Mar 30, 2022 08:42
[2022-03-30] MEDS ORDERED: ESTRADIOL 1 MG TAB (ESTRACE) PO SCH (09:00)
[2022-03-30] MEDS ORDERED: DOCUSATE SODIUM 100 MG (COLACE) CAP PO SCH (09:00)
[2022-03-30 09:25] VITALS: BP 99/56
[2022-03-30] MEDS ORDERED: IBUPROFEN 800 MG (MOTRIN) TAB PO SCH (11:15)
--- NOTE | 2022-03-30 19:29 | Anesthesia-General Post-Op ---
General Patient Condition Mental Status/LOC: Same as Preop Cardiovascular: Satisfactory Nausea/Vomiting: Absent Respiratory: Satisfactory Pain: Controlled Complications: Absent Post Op Complications Complications None Follow Up Care/Instructions Patient Instructions None needed. Anesthesia/Patient Condition Patient Condition Patient is doing well, no complaints, stable vital signs, no apparent adverse anesthesia problems. No complications reported per nursing. CHILANGO ISLAS CRNA Mar 30, 2022 19:29
== END 2022-03-30 12:45 | disposition home or self-care (01) ==
LOC: SDC 06:57 → WS 12:07 → SDC 03-30 12:45
PROVIDERS: ATTEND Obstetrics & Gynecology
DX: D25.1 Intramural leiomyoma of uterus (principal); N83.8 Other noninflammatory disorders of ovary, fallopian tube and broad ligament; N81.4 Uterovaginal prolapse, unspecified; N39.3 Stress incontinence (female) (male)
CPT/HCPCS: 57260; 57288; 58571; 84703; 85025; 87081; C1771; 36415

== ENCOUNTER 2023-01-29 19:33 | Emergency (ER) | payer OTHER ==
[~2023-01-29] VITALS: Ht 180 cm; Wt 86.0 kg
--- NOTE | 2023-01-29 19:57 | ED Abdominal Pain ---
General Chief Complaint: Abdominal/GI Problems Stated Complaint: PAIN IN LEFT SIDE Nursing Triage Note: PT PRESENTS TO ED WITH C/O LEFT ABDOMINAL/SIDE PAIN THAT RADIATES TO THE SHOULDERS THAT BEGAN THIS MORNING. PT DENIES N/V AND URINARY SX, REPORTS NORMAL BOWEL MOVEMENTS. Source of Information: Patient Exam Limitations: No Limitations History of Present Illness Date Seen by Provider: Jan 29, 2023 Time Seen by Provider: 19:46 Initial Comments 52-year-old female presents to the ER with complaint of left upper quadrant abdominal pain since around 6:45 AM this morning. She states that the pain also moved into her right upper quadrant, but the pain is mostly in the left upper quadrant. She also reports intermittent chest pain, states the last episode of chest pain occurred approximately 2 to 3 hours prior to arrival. Reports history of kidney stones, but states this does not feel the same as a kidney stone. Denies fevers, cough, shortness of air, nausea, vomiting, diarrhea, dysuria, hematuria. Last bowel movement was at 1:30 PM and was normal. Abdominal surgeries include a hysterectomy. Allergies and Home Medications Allergies Coded Allergies: morphine (Unverified Allergy, Intermediate, hives, 03/29/22) pt developed hives above iv site after receiving morphine. Patient Home Medication List Home Medication List Reviewed: Yes Alprazolam (Xanax) 0.5 Mg Tablet, 0.5 MG PO HS, (Reported) Entered as Reported by: STEFANIE PAZ on 01/18/22 1035 Azithromycin (Azithromycin) 250 Mg Tablet, 250 MG PO DAILY Prescribed by: Stella Ortega on 01/29/232117 Carbamazepine (Carbamazepine) 200 Mg Tablet, 400 MG PO BID, (Reported) Entered as Reported by: STEFANIE PAZ on 01/18/22 1035 Docusate Sodium (Colace) 100 Mg Capsule, 100 MG PO BID Prescribed by: ATIYA WILLINGHAM on 03/29/22 0841 Naproxen (Naprosyn) 500 Mg Tablet, 500 MG PO BID, (Reported) Entered as Reported by: STEFANIE PAZ on 01/18/22 1035 Oxycodone HCl/Acetaminophen (Percocet 5-325 mg Tablet) 5 Mg-325 Mg Tablet, 1 TAB PO Q4H PRN for PAIN-MODERATE Prescribed by: ATIYA WILLINGHAM on 03/29/22 0841 Terbinafine HCl (Terbinafine HCl) 250 Mg Tablet, 250 MG PO DAILY, (Reported) Entered as Reported by: PAYAL WEST on 03/21/22 1521 Review of Systems Review of Systems Constitutional: see HPI Past Ckliblv-Bsivbk-Aebieg Hx Patient Social History Tobacco Use?: No Substance use?: No Alcohol Use?: Yes Alcohol Frequency: Once in a while Immunizations Up To Date First/Initial COVID19 Vaccinat: November 01 Second COVID19 Vaccination Jomar: November 01 Third COVID19 Vaccination Date: October 01 Seasonal Allergies Seasonal Allergies: No Past Medical History Surgeries: Yes (KIDNEY STONE, TOE SURGERY, BREAST AUGMENTATION) Respiratory: Yes (NO ISSUES/NO INHALER USE) Asthma Currently Using CPAP: No Currently Using BIPAP: No Cardiac: No Neurological: Yes (MIGRAINES/TRIGEMINAL NEURALGIA) Headaches /Migraines Reproductive Disorders: No Female Reproductive Disorders: Denies Genitourinary: Yes Kidney Stones Gastrointestinal: Yes Gastroesophageal Reflux, Irritable Bowel Musculoskeletal: No Endocrine: No HEENT: Yes (CONTACTS/GLASSES) Cancer: No Psychosocial: Yes Sleep Difficulties, Anxiety Integumentary: Yes (TOE FUNGUS) Blood Disorders: No Physical Exam Vital Signs Vital Signs - First Documented 01/29/23 19:40 Temp 36.8 Pulse 76 Resp 18 B/P (MAP) 135/85 (102) Pulse Ox 97 O2 Delivery Room Air Capillary Refill : Height/Weight/BMI Height: 5'11" Weight: 185lbs. oz. 83.393473yk; 26.00 BMI Method:Stated General Appearance: WD/WN, no apparent distress Neck: supple, normal inspection Respiratory: lungs clear, normal breath sounds, no respiratory distress Cardiovascular: regular rate, rhythm Gastrointestinal: normal bowel sounds, non tender, soft Extremities: normal range of motion, normal inspection Neurologic/Psychiatric: alert, normal mood/affect Skin: normal color, warm/dry Progress/Results/Core Measures Results/Orders Lab Results Laboratory Tests Test 01/29/23 19:54 01/29/23 20:05 01/29/23 20:43 Range/Units White Blood Count 7.1 4.3-11.0 10^3/uL Red Blood Count 4.32 3.80-5.11 10^6/uL Hemoglobin 13.4 11.5-16.0 g/dL Hematocrit 40 35-52 % Mean Corpuscular Volume 93 80-99 fL Mean Corpuscular Hemoglobin 31 25-34 pg Mean Corpuscular Hemoglobin Concent 33 32-36 g/dL Red Cell Distribution Width 12.3 10.0-14.5 % Platelet Count 173 130-400 10^3/uL Mean Platelet Volume 10.7 9.0-12.2 fL Immature Granulocyte % (Auto) 0 % Neutrophils (%) (Auto) 66 42-75 % Lymphocytes (%) (Auto) 22 12-44 % Monocytes (%) (Auto) 9 0-12 % Eosinophils (%) (Auto) 3 0-10 % Basophils (%) (Auto) 0 0-10 % Neutrophils # (Auto) 4.7 1.8-7.8 10^3/uL Lymphocytes # (Auto) 1.5 1.0-4.0 10^3/uL Monocytes # (Auto) 0.6 0.0-1.0 10^3/uL Eosinophils # (Auto) 0.2 0.0-0.3 10^3/uL Basophils # (Auto) 0.0 0.0-0.1 10^3/uL Immature Granulocyte # (Auto) 0.0 0.0-0.1 10^3/uL Prothrombin Time 12.7 12.2-14.7 SEC INR Comment 0.9 0.8-1.4 Activated Partial Thromboplast Time 28 24-35 SEC Sodium Level 138 135-145 MMOL/L Potassium Level 3.7 3.6-5.0 MMOL/L Chloride Level 105 98-107 MMOL/L Carbon Dioxide Level 22 21-32 MMOL/L Anion Gap 11 5-14 MMOL/L Blood Urea Nitrogen 10 7-18 MG/DL Creatinine 0.73 0.60-1.30 MG/DL Estimat Glomerular Filtration Rate 100 BUN/Creatinine Ratio 14 Glucose Level 84 70-105 MG/DL Calcium Level 9.3 8.5-10.1 MG/DL Corrected Calcium 9.1 8.5-10.1 MG/DL Magnesium Level 1.9 1.6-2.4 MG/DL Total Bilirubin 0.3 0.1-1.0 MG/DL Aspartate Amino Transf (AST/SGOT) 38 H 5-34 U/L Alanine Aminotransferase (ALT/SGPT) 54 0-55 U/L Alkaline Phosphatase 80 40-136 U/L Troponin I < 0.028 < 0.028 <0.028 NG/ML Total Protein 7.4 6.4-8.2 GM/DL Albumin 4.2 3.2-4.5 GM/DL Lipase 26 8-78 U/L Urine Color YELLOW Urine Clarity CLEAR Urine pH 6.5 5-9 Urine Specific [place] 1.015 L 1.016-1.022 Urine Protein NEGATIVE NEGATIVE Urine Glucose (UA) NEGATIVE NEGATIVE Urine Ketones NEGATIVE NEGATIVE Urine Nitrite NEGATIVE NEGATIVE Urine Bilirubin NEGATIVE NEGATIVE Urine Urobilinogen 0.2 < = 1.0 MG/DL Urine Leukocyte Esterase NEGATIVE NEGATIVE Urine RBC (Auto) NEGATIVE NEGATIVE Urine RBC NONE /HPF Urine WBC NONE /HPF Urine Squamous Epithelial Cells 0-2 /HPF Urine Crystals NONE /LPF Urine Bacteria NEGATIVE /HPF Urine Casts NONE /LPF Urine Mucus SMALL H /LPF Urine Culture Indicated NO My Orders Orders - STELLA WALLIS APRN Comprehensive Metabolic Panel (01/29/23 19:45) Lipase (01/29/23 19:45) Ua Culture If Indicated (01/29/23 19:45) Ed Iv/Invasive Line Start (01/29/23 19:45) Cbc With Automated Diff (01/29/23 19:45) Ct Abdomen/Pelvis W (01/29/23 19:53) Magnesium (01/29/23 19:53) Chest 1 View, Ap/Pa Only (01/29/23 19:53) Ekg Tracing (01/29/23 19:53) Protime With Inr (01/29/23 19:53) Partial Thromboplastin Time (01/29/23 19:53) Troponin I Juan Antonio (01/29/23 19:53) Ketorolac Injection (Toradol Injection) (01/29/23 20:00) Iohexol Injection (Omnipaque 350 Mg/Ml 1 (01/29/23 20:15) Received Contrast (Hold Metformin- Contr (01/29/23 20:15) Ns (Ivpb) (Sodium Chloride 0.9% Ivpb Bag (01/29/23 20:15) Troponin I Juan Antonio (01/29/23 20:33) Azithromycin Tablet (Zithromax Tablet) (01/29/23 21:30) Medications Given in ED Current Medications Medications Dose Ordered Sig/Staci Route Start Time Stop Time Status Last Admin Dose Admin Iohexol 100 ml ONCE ONCE IV 01/29/23 20:15 01/29/23 20:16 DC 01/29/23 20:27 80 ML Ketorolac Tromethamine 15 mg ONCE ONCE IVP 01/29/23 20:00 01/29/23 20:01 DC 01/29/23 20:06 15 MG Sodium Chloride 100 ml ONCE ONCE IV 01/29/23 20:15 01/29/23 20:16 DC 01/29/23 20:27 80 ML Vital Signs/I&O 01/29/23 01/29/23 19:40 21:20 Temp 36.8 Pulse 76 72 Resp 18 18 B/P (MAP) 135/85 (102) 125/75 Pulse Ox 97 96 O2 Delivery Room Air Room Air Blood Pressure Mean: 102 Progress Progress Note : Progress Note Patient seen and evaluated, resting comfortably in bed, no acute distress. Based on exam and symptoms, work-up initiated including CBC, CMP, lipase, troponin, coags, magnesium, chest x-ray, CT abdomen pelvis. 2111 CBC grossly normal. CMP grossly normal. Troponin negative x2. Coags normal. Urinalysis negative for infection. Chest x-ray shows no acute findings. CT shows basilar atelectatic infiltrates, no confluent consolidation. No evidence of cholecystitis, appendicitis, or obstructive uropathy. Few central mesenteric nodes are seen. Radiologist reports that this might be within normal limits, but could also be mild mesenteric adenitis. Due to infilt rates noted on CT and presence of intermittent chest pain. I will treat for pneumonia which might be the cause of her abdominal pain. Results discussed with patient. Discharge instructions and return precautions provided. Initial ECG Impression Date: Jan 29, 2023 Initial ECG Impression Time: 20:37 Initial ECG Rate: 74 Initial ECG Rhythm: Normal Sinus Initial ECG Intervals: Normal Initial ECG Impression: Normal Initial ECG Comparisson: No Previous ECG Available Diagnostic Imaging Diagonstic Imaging: Xray Plain Films/CT/US/NM/MRI: chest Comments [facility], [place] NAME: CARMINE ESTES [facility] REC#: [id number] PT STATUS: REG ER : 1970 PHYSICIAN: STELLA WALLIS APRN ADMIT DATE: 01/29/23/ER Signed Date of Exam:01/29/23 CHEST 1 VIEW, AP/PA ONLY Indication: Chest pain Portable chest 8:19 PM Heart size and pulmonary vascularity are normal. Lungs are clear. There are no effusions or pneumothoraces. IMPRESSION: Negative chest Dictated by: Dictated on workstation # [id number] Dict: 01/29/232032 Trans: 01/29/232033 TCB [id number] Interpreted by: LENNY DO MD Electronically signed by: LENNY DO MD 01/29/232033 Diagonstic Imaging: CT Plain Films/CT/US/NM/MRI: abdomen, pelvis Comments [facility] [place] NAME: CARMINE ESTES [facility] REC#: [id number] PT STATUS: REG ER : 1970 PHYSICIAN: STELLA WALLIS APRN ADMIT DATE: 01/29/23/ER Draft Date of Exam:01/29/23 CT ABDOMEN/PELVIS W PROCEDURE: CT abdomen and pelvis with contrast. TECHNIQUE: Multiple contiguous axial images were obtained through the abdomen and pelvis after administration of intravenous contrast. Auto Exposure Controls were utilized during the CT exam to meet ALARA standards for radiation dose reduction. All CT scans use one or more of the following dose optimizing techniques: automated exposure control, MA and/or KvP adjustment based on patient size and exam type or iterative reconstruction. INDICATION: 52-year-old female with left abdominal pain with pain radiating to the shoulders. COMPARISONS: 12/26/2021. FINDINGS: Lung bases show some basilar atelectatic infiltrates. There is no confluent consolidation. Cardiac contour is normal. Liver shows uniform attenuation. Gallbladder, spleen, GE junction, stomach and duodenal sweep are normal. Pancreas shows sharp margins. Adrenals are normal. Kidneys appear normal in size, position and contour. There is a 2 to 3 mm punctate calcification in the upper pole calyx of the right kidney. There is no hydronephrosis or hydroureter. Both ureters are seen intermittently through their course and appear unremarkable. Bladder is nondistended. Nonopacified loops of small bowel are normal. Appendix is normal. Large bowel contains fecal material and gas. There is no free air, free fluid or adenopathy. There is normal caliber of the aorta, iliac and femoral arteries with normal origin of the visceral arteries. There are a few central mesenteric nodes suggesting an element of mild adenitis. Bone windows show no overall gross abnormality. IMPRESSION: 1. There is no evidence of cholecystitis, appendicitis or obstructive uropathy. 2. A few central mesenteric nodes are seen which may be within normal limits; however, in the appropriate clinical setting mild mesenteric adenitis may be present. Dictated on workstation # [id number] Dict: 01/29/232032 Trans: 01/29/232043 [facility] [id number] Interpreted by: MUMTAZ TALAVERA MD Electronically signed by: Departure Impression Primary Impression: Abdominal pain Additional Impression: Pneumonia Disposition: 01 HOME, SELF-CARE Condition: Stable Departure-Patient Inst. Decision time for Depature: 21:13 Referrals: BETH OLIVA MD (PCP/Family) Primary Care Physician Patient Instructions: Pneumonia in adults Add. Discharge Instructions: Complete full course of antibiotic as directed. Follow-up with your primary care provider. Return for worsening chest pain, shortness of air, fever, or any other new, concerning, or worsening symptoms. All discharge instructions reviewed with patient and/or family. Voiced understanding. Scripts Azithromycin (Azithromycin) 250 Mg Tablet 250 MG PO DAILY for 4 Days, #4 TAB 0 Refills Prov: STELLA WALLIS APRN 01/29/23 Copy Copies To 1: BETH OLIVA MD, BRITTANY R APRN Jan 29, 2023 19:57
[2023-01-29] MEDS ORDERED: KETOROLAC 15 MG/ML VIAL IVP ONE (20:00)
[2023-01-29 20:14] LABS: BILIRUBIN,URINE NEGATIVE (NEGATIVE); CLARITY,URINE CLEAR; COLOR,URINE YELLOW; GLUCOSE, URINE (UA) NEGATIVE (NEGATIVE); KETONES,URINE NEGATIVE (NEGATIVE); LEUKOCYTE ESTERASE ,URINE NEGATIVE (NEGATIVE); NITRITE,URINE NEGATIVE (NEGATIVE); PH,URINE 6.5 (5-9); PROTEIN,URINE NEGATIVE (NEGATIVE)
[2023-01-29 20:15] LABS: BASOPHILS % (AUTO) 0 % (0-10); EOSINOPHILS # (AUTO) 0.2 10^3/uL (0.0-0.3); EOSINOPHILS % (AUTO) 3 % (0-10); HEMATOCRIT 40 % (35-52); HEMOGLOBIN 13.4 g/dL (11.5-16.0); LYMPHOCYTES # (AUTO) 1.5 10^3/uL (1.0-4.0); LYMPHOCYTES % (AUTO) 22 % (12-44); MEAN CORPUSCULAR HEMOGLOBIN 31 pg (25-34); MEAN CORPUSCULAR HGB CONC 33 g/dL (32-36); MEAN CORPUSCULAR VOLUME 93 fL (80-99); MEAN PLATELET VOLUME 10.7 fL (9.0-12.2); MONOCYTES # (AUTO) 0.6 10^3/uL (0.0-1.0); MONOCYTES % (AUTO) 9 % (0-12); NEUTROPHILS # (AUTO) 4.7 10^3/uL (1.8-7.8); NEUTROPHILS % (AUTO) 66 % (42-75); PLATELET COUNT 173 10^3/uL (130-400); WHITE BLOOD COUNT 7.1 10^3/uL (4.3-11.0)
[2023-01-29] MEDS ORDERED: IOHEXOL 350 MG/ML 100 ML (OMNIPAQUE 350) VIAL IV ONE (20:15)
[2023-01-29] MEDS ORDERED: HOLD METFORMIN - RECEIVED CONTRAST 20 ML VIAL IV SCH (20:15)
[2023-01-29] MEDS ORDERED: NS 100 ML (IVPB) BAG IV ONE (20:15)
[2023-01-29 20:34] LABS: ALANINE AMINOTRANSFERASE 54 U/L (0-55); ALBUMIN 4.2 GM/DL (3.2-4.5); ALKALINE PHOSPHATASE 80 U/L (40-136); BILIRUBIN,TOTAL 0.3 MG/DL (0.1-1.0); BUN/CREATININE RATIO 14; CALCIUM 9.3 MG/DL (8.5-10.1); CARBON DIOXIDE 22 MMOL/L (21-32); CHLORIDE 105 MMOL/L (98-107); CREATININE SERUM 0.73 MG/DL (0.60-1.30); GFR ESTIMATED 100; GLUCOSE 84 MG/DL (70-105); LIPASE 26 U/L (8-78); MAGNESIUM 1.9 MG/DL (1.6-2.4); POTASSIUM 3.7 MMOL/L (3.6-5.0); SODIUM 138 MMOL/L (135-145); TOTAL PROTEIN 7.4 GM/DL (6.4-8.2)
--- NOTE | 2023-01-29 20:36 | Diagnostic Imaging Report ---
Indication: Chest pain Portable chest 8:19 PM Heart size and pulmonary vascularity are normal. Lungs are clear. There are no effusions or pneumothoraces. IMPRESSION: Negative chest Dictated by: Dictated on workstation # [id number]
[2023-01-29 20:41] LABS: BACTERIA,URINE NEGATIVE /HPF; SQUAMOUS EPITHELIAL CELL,UR 0-2 /HPF
--- NOTE | 2023-01-29 20:44 | Diagnostic Imaging Report ---
PROCEDURE: CT abdomen and pelvis with contrast. TECHNIQUE: Multiple contiguous axial images were obtained through the abdomen and pelvis after administration of intravenous contrast. Auto Exposure Controls were utilized during the CT exam to meet ALARA standards for radiation dose reduction. All CT scans use one or more of the following dose optimizing techniques: automated exposure control, MA and/or KvP adjustment based on patient size and exam type or iterative reconstruction. INDICATION: 52-year-old female with left abdominal pain with pain radiating to the shoulders. COMPARISONS: 12/26/2021. FINDINGS: Lung bases show some basilar atelectatic infiltrates. There is no confluent consolidation. Cardiac contour is normal. Liver shows uniform attenuation. Gallbladder, spleen, GE junction, stomach and duodenal sweep are normal. Pancreas shows sharp margins. Adrenals are normal. Kidneys appear normal in size, position and contour. There is a 2 to 3 mm punctate calcification in the upper pole calyx of the right kidney. There is no hydronephrosis or hydroureter. Both ureters are seen intermittently through their course and appear unremarkable. Bladder is nondistended. Nonopacified loops of small bowel are normal. Appendix is normal. Large bowel contains fecal material and gas. There is no free air, free fluid or adenopathy. There is normal caliber of the aorta, iliac and femoral arteries with normal origin of the visceral arteries. There are a few central mesenteric nodes suggesting an element of mild adenitis. Bone windows show no overall gross abnormality. IMPRESSION: 1. There is no evidence of cholecystitis, appendicitis or obstructive uropathy. 2. A few central mesenteric nodes are seen which may be within normal limits; however, in the appropriate clinical setting mild mesenteric adenitis may be present. Dictated by: Dictated on workstation # [id number]
[2023-01-29 20:52] LABS: INR 0.9 (0.8-1.4); PROTHROMBIN TIME PATIENT 12.7 SEC (12.2-14.7)
[2023-01-29] MEDS ORDERED: AZIT250T12 PO (21:18)
[2023-01-29 21:20] VITALS: BP 125/75
[2023-01-29] MEDS ORDERED: AZITHROMYCIN 250 MG TAB (ZITHROMAX) PO ONE (21:30)
== END 2023-01-29 21:32 | disposition home or self-care (01) ==
LOC: EDUNIT# 19:33 → ER 19:35
DX: R10.12 Left upper quadrant pain (principal); J18.9 Pneumonia, unspecified organism; J98.11 Atelectasis
CPT/HCPCS: 36415; 71045; 74177; 80053; 81000; 83690; 83735; 84484; 85025; 85610; 85730; 93005

== ENCOUNTER → 2023-03-24 | Outpatient (CLI) | payer OTHER ==
[~2023-03-24] MED LIST changes: +AZIT250T12 PO
--- NOTE | 2023-03-24 10:45 | Diagnostic Imaging Report ---
INDICATION: Routine screening. COMPARISON: 03/07/2022 and 04/18/2017. TECHNIQUE: 2D and 3D bilateral screening mammography was performed with CAD. FINDINGS: Bilateral subpectoral breast implants are again noted. The implant contours remain smooth without evidence of extracapsular rupture. Both breasts are heterogeneously dense, limiting the sensitivity of mammography. Scattered benign calcifications are noted. No mass or malignant-appearing microcalcifications are seen. The axillae are unremarkable. IMPRESSION: No mammographic features suspicious for malignancy are identified. ACR BI-RADS Category 2: Benign findings. Result letter will be mailed to the patient. Note: At least 10% of breast cancer is not imaged by mammography. Dictated by: Dictated on workstation # [id number]
== END ==
LOC: RAD 08:38
PROVIDERS: ATTEND Family Medicine
DX: Z12.31 Encounter for screening mammogram for malignant neoplasm of breast (principal)
CPT/HCPCS: 77063; 77067

== ENCOUNTER 2023-04-23 05:38 | Emergency (ER) | payer OTHER ==
[~2023-04-23] VITALS: Ht 180 cm; Wt 86.0 kg
[2023-04-23] MEDS ORDERED: NARA2.5T2 (05:49)
[2023-04-23] MEDS ORDERED: ESTR1TAB24 (05:49)
[2023-04-23] MEDS ORDERED: ALPR1TAB7 (05:49)
[2023-04-23] MEDS ORDERED: FREM225A (05:49)
--- NOTE | 2023-04-23 06:25 | ED General ---
General Chief Complaint: General Problems/Pain Stated Complaint: RIGHT WRIST/LEFT ANKLE/LEFT SHOULDER PAIN Nursing Triage Note: C/O INTERMITTANT PAIN TO RIGHT WRIST, LEFT ANKLE/SHOULDER X2 WEEKS. REPORTS PAIN STARTED IN GROIN. SEEN BY PCP 04/18/23 FOR SAME UNAWARE OF RESULTS FROM TESTS. REPORTS PAIN WORSE THIS AM. Source of Information: Patient Exam Limitations: No Limitations (MARS DHALIWAL) History of Present Illness Date Seen by Provider: Apr 23, 2023 Time Seen by Provider: 06:10 Initial Comments Patient is seen this morning for a 2 week history of "joint pain." Her primary complaint area this morning is her right wrist, left ankle and left shoulder. The pain originally started in her groin 2 weeks prior but has since moved to the other areas. She saw Dr. Durham this past Friday for the pains and he was going to run labs to test for autoimmune diseases included RA. She says the pains happen about every other night. She describes the pain as a 9/10 this morning, which is the worst that it has been since it started. She took a hydrocodone this morning at 4:30 with hopes that she could see her PCP today but said she could not wait any longer. Timing/Duration: Getting Worse Severity: Mild (MARS DHALIWAL) Allergies and Home Medications Allergies Coded Allergies: morphine (Unverified Allergy, Intermediate, hives, 03/29/22) pt developed hives above iv site after receiving morphine. Patient Home Medication List Home Medication List Reviewed: Yes (MARS DHALIWAL) Alprazolam (Xanax) 0.5 Mg Tablet, 0.5 MG PO HS, (Reported) Entered as Reported by: STEFANIE PAZ on 01/18/22 1035 Alprazolam (Alprazolam) 1 Mg Tablet, (Reported) Entered as Reported by: KAI PATINO on 04/23/23 0549 Last Action: New Order Azithromycin (Azithromycin) 250 Mg Tablet, 250 MG PO DAILY Prescribed by: Stelal Orteag on 01/29/232117 Carbamazepine (Carbamazepine) 200 Mg Tablet, 400 MG PO BID, (Reported) Entered as Reported by: STEFANIE PAZ on 01/18/22 1035 Docusate Sodium (Colace) 100 Mg Capsule, 100 MG PO BID Prescribed by: ATIYA WILLINGHAM on 03/29/22 0841 Estradiol (Estradiol Tablet) 1 Mg Tablet, (Reported) Entered as Reported by: KAI PATINO on 04/23/23548 Last Action: New Order Fremanezumab-Vfrm (Ajovy Autoinjector) 225 Mg/1.5 Ml Auto.injct, (Reported) Entered as Reported by: KAI PATINO on 04/23/23548 Last Action: New Order Naproxen (Naprosyn) 500 Mg Tablet, 500 MG PO BID, (Reported) Entered as Reported by: STEFANIE PAZ on 01/18/22 1035 Naratriptan HCl (Naratriptan HCl) 2.5 Mg Tablet, (Reported) Entered as Reported by: KAI PATINO on 04/23/23548 Last Action: New Order Oxycodone HCl/Acetaminophen (Percocet 5-325 mg Tablet) 5 Mg-325 Mg Tablet, 1 TAB PO Q4H PRN for PAIN-MODERATE Prescribed by: ATIYA WILLINGHAM on 03/29/22 0841 Terbinafine HCl (Terbinafine HCl) 250 Mg Tablet, 250 MG PO DAILY, (Reported) Entered as Reported by: PAYAL WEST on 03/21/22 1521 Review of Systems Review of Systems Constitutional: no symptoms reported EENTM: no symptoms reported Respiratory: no symptoms reported Cardiovascular: no symptoms reported Gastrointestinal: no symptoms reported Genitourinary: no symptoms reported Musculoskeletal: joint pain; No joint swelling; muscle pain; No muscle stiffness, No muscle cramps Skin: No change in color, No change in hair/nails (MARS DHALIWAL) Past Aalxhcf-Edoknd-Kszvha Hx Patient Social History Tobacco Use?: No Substance use?: No Alcohol Use?: Yes Alcohol Frequency: Once in a while Pt feels they are or have been: No (MARS DHALIWAL) Immunizations Up To Date First/Initial COVID19 Vaccinat: November 01 Second COVID19 Vaccination Jomar: November 01 Third COVID19 Vaccination Date: November 01 (MARS DHALIWAL) Seasonal Allergies Seasonal Allergies: No (MARS DHALIWAL) Past Medical History Surgery/Hospitalization HX: BREAST AUGMENTATION, TOE SX RENAL STONES, HEADACHES, TRIGEMINAL NEURALGA, ANXIETY Surgeries: Yes (KIDNEY STONE, TOE SURGERY, BREAST AUGMENTATION) Hysterectomy Respiratory: Yes (NO ISSUES/NO INHALER USE) Asthma Currently Using CPAP: No Currently Using BIPAP: No Cardiac: No Neurological: Yes (MIGRAINES/TRIGEMINAL NEURALGIA) Headaches /Migraines Reproductive Disorders: No Female Reproductive Disorders: Denies 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 oz. 83.934603ha; 26.00 BMI Method:Stated General Appearance: No Apparent Distress, WD/WN Neck: Full Range of Motion, Supple Respiratory: Lungs Clear, No Accessory Muscle Use Cardiovascular: Regular Rate, Rhythm, No Gallop, No Murmur Extremity: Normal Capillary Refill, Normal Range of Motion, Other (tenderness and pain to ROM of left ankle, shoulder, and right wrist in diffuse area. ) Neurologic/Psychiatric: Alert, Oriented x3, Normal Mood/Affect (MARS DHALIWAL) Progress/Results/Core Measures Suspected Sepsis SIRS Temperature: Pulse: 89 Respiratory Rate: 14 Blood Pressure 121 /85 Mean: 97 (MARS DHALIWAL) Results/Orders My Orders Orders - DAVID NELSON MD Ketorolac Injection (Ketorolac Injection (04/23/23 07:15) (DAVID NELSON MD) Medications Given in ED (DAVID NELSON MD) Vital Signs/I&O 04/23/23 04/23/23 05:44 08:13 Temp 36.7 36.7 Pulse 89 89 Resp 14 14 B/P (MAP) 121/85 (97) 121/85 Pulse Ox 94 94 O2 Delivery Room Air Room Air (DAVID NELSON MD) Vital Signs/I&O Capillary Refill : Less Than 3 Seconds (MARS DHALIWAL) Blood Pressure Mean: 97 Progress Note : Time: 06:10 Progress Note 6:10 - Patient is seen this morning for right wrist, left ankle and left shoulder pain. She says this pain has been going on for 2 weeks, it started as a pain in her groin. She described the pain as "bone pain" that is sharp in nature. She says these pains happen about every other night it seems. She has tried taking Hydrocodone for the pain but it has not helped completely relieve the pain. She rates the pain as a 9/10 this morning. She has tenderness and pain to passive ROM and palpation to the right wrist, left ankle and left shoulder diffusely to all areas. She has not tried taking any NSAID's for the pain during this time. Plan is to give her Toradol injection and see if it helps with the pain. (MARS DHALIWAL) Progress Note : Progress Note Patient was interviewed and examined by me at 0705 after receiving report from GISSELLE Ren[place], and reviewing triage notes, vital signs, and patient's chart. Student initiated history and physical on my behalf for this stable patient while I attended to multiple inbound ambulance patients. On my exam patient was found to have polyarthralgia with pain on ROM and TTP but no significant heat, erythema, or swelling. She was denied any significant systemic symptoms. Patient had not tried any NSAID therapy. She had taken Hydrocodone without much relief. She has no reported contraindications for NSAID therapy and has no objections. Toradol injection was offered and accepted. She was noticing some modest improvement in pain prior to discharge. No lab evaluation was performed as patient had stable vitals and work-up with blood work pending with Dr. Oliva. (DAVID NELSON MD) Departure Impression Primary Impression: Polyarthralgia Disposition: 01 HOME, SELF-CARE Condition: Improved Departure-Patient Inst. Decision time for Depature: 07:16 (DAVID NELSON MD) Referrals: BETH OLIVA MD (PCP/Family) Primary Care Physician Patient Instructions: ARTHRALGIA, Nonsteroidal antiinflammatory drugs (NSAIDs) Add. Discharge Instructions: Please follow-up with Dr. Oliva as soon as possible to review your labs and receive further direction of care. In the meantime, you may try treatment with NSAID medications. Options would include ibuprofen up to 600 mg every 6 hours as needed or naproxen up to 500 mg twice daily. For mild breakthrough pain you may add Tylenol (acetaminophen) up to 1000 mg every 6 hours as needed. For more severe breakthrough pain you may use hydrocodone as previously prescribed. Do not take both acetaminophen and hydrocodone as the hydrocodone tablets contain acetaminophen. You should not exceed more than a total dose of 1000 mg of acetaminophen every 6 hours. Return to the ER if you have worsening symptoms despite following these instructions. Take NSAID medications with food or milk to avoid stomach upset. All discharge instructions reviewed with patient and/or family. Voiced understanding. Medical Student Attestation and Attending Note: I have personally interviewed and examined this patient along with GISSELLE [place]. I have reviewed student documentation including history, physical, and assessments. I agree with the documentation except where otherwise noted. Exam: General: Alert, oriented, no acute distress, well developed HEENT: Normocephalic and atraumatic Heart: Regular rate and rhythm without murmur Lungs: Clear to auscultation bilaterally with normal effort Ext: TTP over the right wrist, left ankle and left shoulder without erythema, edema, heat, or pain with ROM. Neuropsych: Alert, oriented, no focal deficits Skin: Warm and dry without rashes (DAVID NELSON MD) Copy Copies To 1: BETH OLIVA MD, BRETT Apr 23, 2023 06:25 DAVID NELSON MD Apr 23, 2023 07:19
[2023-04-23] MEDS ORDERED: KETOROLAC INJ 30 MG/ML VIAL IM ONE (07:15)
[2023-04-23 08:13] VITALS: BP 121/85
== END 2023-04-23 08:13 | disposition home or self-care (01) ==
LOC: EDUNIT# 05:38 → ER 05:40
DX: M25.531 Pain in right wrist (principal); M25.572 Pain in left ankle and joints of left foot; M25.512 Pain in left shoulder
CPT/HCPCS: 99284